=== PATIENT | female | born 1995 | race Caucasian/White ===

== ENCOUNTER 2018-10-10 18:44 | Emergency (ER) | payer SELFPAY ==
--- NOTE | 2018-10-10 19:33 | C.PDOC ---
History Of Present Illness 23 y/o female with a PMHx of thyroid disease and menorrhagia, presents to the ED complaining of abdominal pain associated with nausea and vomiting for past few days. States pain began yesterday after menstruation began. Patient admits to having similar pain last month during menstrual period. She reports having hx of ovarian cyst issue, for which she is taking contraceptives but did not take it yesterday or today since menses started. She denies any chest pain, SOB, fever, chills, or diarrhea. Also states she has daily bowel movements but she feels mildly constipated. Of note, pt had a recent ultrasound which was normal. Time Seen by Provider: 10/10/18 19:11 Chief Complaint (Nursing): GI Problem History Per: Patient History/Exam Limitations: no limitations Onset/Duration Of Symptoms: Days Current Symptoms Are (Timing): Still Present Associated Symptoms: Nausea, Vomiting Past Medical History Reviewed: Historical Data, Nursing Documentation, Vital Signs Vital Signs: Last Vital Signs Temp 98 F 10/10/18 18:48 Pulse 100 H 10/10/18 18:48 Resp 20 10/10/18 18:48 BP 135/89 10/10/18 18:48 Pulse Ox 97 10/10/18 18:48 - Medical History PMH: Hypothyroidism Family History: States: No Known Family Hx - Social History Hx Alcohol Use: No Hx Substance Use: No - Immunization History Hx Tetanus Toxoid Vaccination: No Hx Influenza Vaccination: Yes Hx Pneumococcal Vaccination: No Review Of Systems Except As Marked, All Systems Reviewed And Found Negative. Constitutional: Negative for: Fever, Chills Gastrointestinal: Positive for: Nausea, Vomiting, Abdominal Pain, Constipation. Negative for: Diarrhea, Hematochezia, Hematemesis Genitourinary: Positive for: Vaginal Bleeding. Negative for: Dysuria, Frequency, Incontinence Physical Exam - Physical Exam Appears: Non-toxic, No Acute Distress Skin: Normal Color, Warm, Dry Head: Atraumatic, Normacephalic Eye(s): bilateral: Normal Inspection, PERRL, EOMI Oral Mucosa: Moist Neck: Normal ROM Chest: Symmetrical Cardiovascular: Rhythm Regular, No Murmur Respiratory: No Rales, No Rhonchi, No Wheezing, Other (Lungs clear bilaterally) Gastrointestinal/Abdominal: Soft, Tenderness (to right suprapubic region), No Guarding, No Rebound Back: No CVA Tenderness, No Vertebral Tenderness Extremity: Bilateral: Atraumatic, Normal Color And Temperature, Normal ROM Neurological/Psych: Oriented x3, Normal Speech ED Course And Treatment - Laboratory Results Result Diagrams: 10/10/18 19:54 10/10/18 19:54 O2 Sat by Pulse Oximetry: 97 (RA) Pulse Ox Interpretation: Normal Medical Decision Making Medical Decision Making: Impression: Gastritis, Menorrhagia Plan: -Labs -20 mg IV Pepcid -CT Abdomen/Pelvis with PO contrast The pt is feeling better and wants to go home. Ct scan cannot visualezed her appendix but ' there is no sign of inflammation. Advised pt to reurn to the ED if pain worsened or presence of fever or vomiting. Disposition - Disposition Referrals: [facility] at [facility] [Outside] [facility] at [facility] [Outside] [facility] at [place] [Outside] Disposition: HOME/ ROUTINE Disposition Time: 22:55 Condition: GOOD Additional Instructions: Keep bland diet until diarrhea resolved and take your medications as directed. Follow up with your pcp or medicine clinic in a few days. Prescriptions: Famotidine [Pepcid] 40 mg PO DAILY #15 tablet Ibuprofen [Motrin] 600 mg PO Q6 #20 tab Instructions: Viral Gastroenteritis, Acute Abdomen (Belly Pain), Adult (DC) Forms: [employer] (Danish) - Clinical Impression Clinical Impression: Gastroenteritis, Abdominal pain - Scribe Statement The provider has reviewed the documentation as recorded by the Ivania Zamudio Provider Attestation: All medical record entries made by the Joseibhawa were at my direction and person ally dictated by me. I have reviewed the chart and agree that the record accurately reflects my personal performance of the history, physical exam, medical decision making, and the department course for this patient. I have also personally directed, reviewed, and agree with the discharge instructions and disposition.
[2018-10-10 20:01] LABS: HCG,QUALITATIVE URINE NEGATIVE (NEGATIVE)
[2018-10-10 20:04] LABS: BASO # 0.1 K/uL (0.0-0.2); BASO % 0.8 % (0.0-2.0); EOS # 0.3 K/uL (0.0-0.7); EOS % 3.5 % (0.0-4.0); HEMOGLOBIN 10.9 g/dL (11.0-16.0); LYMPH # 2.7 K/uL (1.0-4.3); LYMPH % 29.1 % (20.0-40.0); MEAN CELL VOLUME 69.5 fL (81.0-99.0); MEAN CORPUSCULAR HEMOGLOBIN 22.4 pg (27.0-31.0); MEAN CORPUSCULAR HGB CONC 32.2 g/dL (33.0-37.0); MONO # 0.8 K/uL (0.0-0.8); MONO % 8.2 % (0.0-10.0); NEUT # 5.4 K/uL (1.8-7.0); NEUT % 58.4 % (50.0-75.0); RBC 4.87 Mil/uL (3.80-5.20); SQUAMOUS EPITHIAL 2 /hpf (0-5); URINE BILIRUBIN NEGATIVE (NEGATIVE); URINE BLOOD 3+ (NEGATIVE); URINE CLARITY Clear (Clear); URINE COLOR Yellow (YELLOW); URINE GLUCOSE (UA) NORMAL (Normal); URINE LEUKOCYTE ESTERASE NEG Leu/uL (Negative); URINE PROTEIN 1+ mg/dL (NEGATIVE); URINE UROBILINOGEN NORMAL mg/dL (0.2-1.0); WHITE BLOOD COUNT 9.2 K/uL (4.8-10.8)
[2018-10-10 20:10] LABS: ALB/GLOB RATIO 1.1 (1.0-2.1); ALT/SGPT 32 U/L (9-52); AST/SGOT 22 U/L (14-36); BLOOD UREA NITROGEN 11 mg/dL (7-17); CALCIUM 9.1 mg/dl (8.6-10.4); GFR NON-AFRICAN AMERICAN > 60; LIPASE 46 U/L (23-300)
[2018-10-10] MEDS ORDERED: Iohexol 240 (50 ml) PO ONE (20:11)
[2018-10-10] MEDS ORDERED: Iohexol 240 (50 ml) ONE (20:15)
[2018-10-10 22:37] VITALS: BP 110/73; PULSE 86; RESP 16; TEMP 97.8
--- NOTE | 2018-10-11 12:52 | CT ---
Date of service: 10/10/2018 PROCEDURE: CT Abdomen and Pelvis without intravenous contrast HISTORY: abd pain COMPARISON: None. TECHNIQUE: Without contrast.. Contrast dose: 0 Radiation dose: Total exam DLP = 592.18 mGy-cm. This CT exam was performed using one or more of the following dose reduction techniques: Automated exposure control, adjustment of the mA and/or kV according to patient size, and/or use of iterative reconstruction technique. FINDINGS: LOWER THORAX: Unremarkable. LIVER: Unremarkable. No gross lesion or ductal dilatation. GALLBLADDER AND BILE DUCTS: Unremarkable. PANCREAS: Unremarkable. No gross lesion or ductal dilatation. SPLEEN: Unremarkable. ADRENALS: Unremarkable. No mass. KIDNEYS AND URETERS: Unremarkable. No hydronephrosis. No solid mass. VASCULATURE: Unremarkable. No aortic aneurysm. No aortic atherosclerotic calcification or mural plaque present. BOWEL: Unremarkable. No obstruction. No gross mural thickening. APPENDIX: Unremarkable. Normal appendix. PERITONEUM: Unremarkable. No free fluid. No free air. LYMPH NODES: No retroperitoneal or pelvic lymphadenopathy. There are innumerable shotty subcentimeter lymph nodes in the small bowel mesenteric. Multiple lymph nodes of at least 5 mm diameter are seen medial to the cecum and ascending colon. Findings may reflect mesenteric adenitis. BLADDER: Unremarkable. REPRODUCTIVE: Normal uterus BONES: No acute fracture. OTHER FINDINGS: None. IMPRESSION: Findings indicating possible mesenteric adenitis. No other significant abnormality is identified. The preliminary findings for this examination were reported by [facility] at 10:01 p.m. on 10/10/2018. There is discordance of this report with the preliminary findings. A normal appendix is visualized. The findings reflecting possible mesenteric adenitis were not described in the preliminary report of this examination.
[2018-10-12 19:42] VITALS: O2SAT 97
== END 2018-10-10 22:55 | disposition home or self-care (01) ==
LOC: C.ER 18:44
DX: K29.70 Gastritis, unspecified, without bleeding (principal); N92.0 Excessive and frequent menstruation with regular cycle; E03.9 Hypothyroidism, unspecified
CPT/HCPCS: 74176; 80053; 81001; 83690; 84703; 85025; 87086; 96365; 99285; Q9966